=== PATIENT | female | born 1975 | race Two or more races ===

== ENCOUNTER → 2023-09-07 08:00 | Outpatient (CLI) | payer OTHER ==
[~2023-09-07] VITALS: Ht 152.4 cm; Wt 78.5 kg
[~2023-09-07 08:00] MED LIST: CLONAZEPAM1 MG PO; CRESTOR20 MG PO; CYMBALTA60 MG PO; LOSARTAN POTAS100 MG PO; MORGIDOX100 MG PO; NAPR500T14 PO; PAXIL20 MG PO
[2023-09-07 10:10] LABS: HEMATOCRIT 40.6 % (36.0-45.00); HEMOGLOBIN 13.5 g/dL (12.0-15.00); MEAN CELL VOLUME 84.7 fL (80.00-100.00); MEAN CORPUSCULAR HEMOGLOBIN 28.2 pg (27.00-32.0); MEAN CORPUSCULAR HGB CONC 33.3 g/dl (32.0-36.0); PLATELET COUNT 341 K/uL (150-450); RED BLOOD COUNT 4.79 M/uL (4.00-6.00); RED CELL DISTRIBUTION WIDTH 13.6 % (11.5-14.5)
[2023-09-07 10:35] LABS: URINE APPEARANCE Clear; URINE BILIRRUBIN Negative (NEGATIVE); URINE BLOOD Trace; URINE COLOR Yellow; URINE GLUCOSE Negative (NEGATIVE); URINE LEUKOCYTE Trace; URINE NITRATE Negative; URINE PROTEIN Negative (NEGATIVE)
[2023-09-07 10:37] LABS: URINE BACTERIA 345.1 uL (0.0-1933); URINE EPITHELIAL CELLS 17.4 uL (0.0-38.8); URINE RBC 195.3 uL (0.0-20.8); URINE WBC 7.4 uL (0.0-23.2)
[2023-09-07 10:52] LABS: INR 1.04; PARTIAL THROMBOPLASTIN TIME 30.7 SECONDS (22.0-34.0); PROTHROMBIN TIME 10.9 SECONDS (9.0-11.5)
[2023-09-07 10:54] LABS: ALBUMIN 3.8 gm/dL (3.4-5.0); BILIRUBIN TOTAL 0.66 mg/dL (0.3-1.2); CALCIUM 9.3 mg/dL (8.5-10.1); CREATININE SERUM 0.7 mg/dL (0.55-1.02); GFR 90.08; GLOBULINA 3.9 G/DL (2.4-3.5); POTASSIUM 4.53 mEq/L (3.5-5.1); TOTAL PROTEIN 7.7 gm/dL (6.4-8.2); TSH 1.45 uIU/mL (0.358-3.74)
== END | disposition home or self-care (01) ==
LOC: ADM 07:45 → LAB 08:00 → CIR.AMB 09-21 07:45 → EDSTATUS 09-30 07:45 → CIR.AMB 09-30 07:45
PROVIDERS: ATTEND Obstetrics & Gynecology
DX: N84.0 Polyp of corpus uteri (principal); D25.0 Submucous leiomyoma of uterus; N92.0 Excessive and frequent menstruation with regular cycle; N88.2 Stricture and stenosis of cervix uteri; I10 Essential (primary) hypertension; J45.41 Moderate persistent asthma with (acute) exacerbation

== ENCOUNTER 2023-10-26 05:50 | Day surgery (SDC) | payer OTHER ==
[2023-10-23 10:15] LABS: HEMATOCRIT 42.3 % (36.0-45.00); HEMOGLOBIN 14.3 g/dL (12.0-15.00); MEAN CELL VOLUME 82.3 fL (80.00-100.00); MEAN CORPUSCULAR HEMOGLOBIN 27.8 pg (27.00-32.0); MEAN CORPUSCULAR HGB CONC 33.8 g/dl (32.0-36.0); PLATELET COUNT 387 K/uL (150-450); RED BLOOD COUNT 5.13 M/uL (4.00-6.00); RED CELL DISTRIBUTION WIDTH 13.8 % (11.5-14.5)
[2023-10-23 10:45] LABS: INR 1.01; PROTHROMBIN TIME 10.6 SECONDS (9.0-11.5)
[2023-10-23 10:46] LABS: URINE APPEARANCE Clear; URINE BILIRRUBIN Negative (NEGATIVE); URINE BLOOD Small; URINE COLOR Yellow; URINE GLUCOSE Negative (NEGATIVE); URINE LEUKOCYTE Trace; URINE NITRATE Negative; URINE PROTEIN Negative (NEGATIVE); URINE UROBILINOGEN 0.2 E.U./dl
[2023-10-23 10:50] LABS: URINE BACTERIA 139.7 uL (0.0-1933); URINE EPITHELIAL CELLS 2.3 uL (0.0-38.8); URINE RBC 40.6 uL (0.0-20.8); URINE WBC 5.5 uL (0.0-23.2)
[2023-10-23 11:07] LABS: BILIRUBIN TOTAL 0.48 mg/dL (0.3-1.2); CALCIUM 9.7 mg/dL (8.5-10.1); CREATININE SERUM 0.73 mg/dL (0.55-1.02); GFR 85.83; GLOBULINA 3.9 G/DL (2.4-3.5); POTASSIUM 4.49 mEq/L (3.5-5.1); TOTAL PROTEIN 7.9 gm/dL (6.4-8.2); TSH 1.13 uIU/mL (0.358-3.74)
[~2023-10-26] VITALS: Ht 152.4 cm; Wt 78.5 kg
[~2023-10-26 05:50] MED LIST changes: -MORGIDOX100 MG PO; -NAPR500T14 PO
[2023-10-26] MEDS ORDERED: CEFAZOLIN SODIUM 1,000 MG VIAL ONE (07:08)
[2023-10-26] MEDS ORDERED: PROMETHAZINE HCL 50 MG/ML AMPUL IM ONE (09:30)
[2023-10-26] MEDS ORDERED: MORPHINE SULFATE 4 MG/ML VIAL IV PRN (09:30)
[2023-10-26] MEDS ORDERED: CEFAZOLIN SODIUM 1,000 MG VIAL IV ONE (09:30)
[2023-10-26] MEDS ORDERED: MORGIDOX100 MG PO (09:37)
[2023-10-26] MEDS ORDERED: NAPR500T14 PO (09:37)
== END 2023-10-26 11:45 | disposition home or self-care (01) ==
LOC: CIR.AMB 05:50
PROVIDERS: ATTEND Obstetrics & Gynecology
DX: N92.1 Excessive and frequent menstruation with irregular cycle (principal); N84.0 Polyp of corpus uteri; D25.0 Submucous leiomyoma of uterus; I10 Essential (primary) hypertension; Z20.822 Contact with and (suspected) exposure to COVID-19